=== PATIENT | female | born 1965 | race Hispanic/Latino ===

== ENCOUNTER 2016-10-28 17:29 | Emergency (ER) | payer OTHER ==
[~2016-10-28] VITALS: Ht 157.5 cm; Wt 68.0 kg
[~2016-10-28 17:29] MED LIST: BENADRYL25 MG PO; CIPRO500 M1 PO; ENDOCET 325 MG-1 TA1 PO; EPIPEN ADULT A0.3 MG IM; FLEXERIL 5MG TAB5 MG PO; FLEXERIL10 MG PO; HYDROXYZINE HCL25 M2 PO; LINZESS145 MC1 PO; LINZESS145 MCG PO; MEDROL4 M2 PO; NAPROXEN500 MG PO; PEPCID20 MG PO; PEPCID40 MG PO; PERCOCET 325 MG1 TA2 PO; PERCOCET 5-3251 EACH PO; TRAMADOL HCL50 M1 PO; VISTARIL50 MG PO; XOLAIR IM; XOLAIR150 MG IM; ZOFRAN ODT4 M1 PO
[2016-10-28 17:53] VITALS: BP 161/93
[2016-10-28 18:13] LABS: ABSOLUTE BASOPHIL COUNT 0 /CUMM (0.0-0.2); ABSOLUTE EOSINOPHIL COUNT 0.1 /CUMM (0.0-0.7); ABSOLUTE GRANULOCYTE CT 3.4 /CUMM (1.4-6.5); ABSOLUTE LYMPH COUNT 1.8 /CUMM (1.2-3.4); ABSOLUTE MONOCYTE COUNT 0.6 /CUMM (0.10-0.60); BASOPHIL % 0.5 % (0.0-2.0); EOSINOPHIL % 1.8 % (0-5); GRANULOCYTE % 56.9 % (42.2-75.2); MEAN CORPUSCULAR HGB 29.2 PG (27.0-31.0); MEAN CORPUSCULAR HGB CONC 33.4 G/DL (33.0-37.0); MEAN CORPUSCULAR VOLUME 87.3 FL (81.0-99.0); MEAN PLATELET VOLUME 9.4 FL (7.4-10.4); PLATELET COUNT 283 /CUMM (130-400); RBC DISTRIBUTION WIDTH 13.5 % (11.5-14.5); RED BLOOD CELL CT 4.92 /CUMM (4.20-5.40); WHITE BLOOD CELL COUNT 5.9 /CUMM (4.8-10.8)
--- NOTE | 2016-10-28 19:04 | ED GI/GU/ABDOMINAL COMPLAINT ---
History of Present Illness General Chief Complaint: Abdominal Pain/Flank Pain Stated Complaint: LT SIDE PAIN Source: patient, old records Exam Limitations: no limitations Vital Signs & Intake/Output Vital Signs & Intake/Output Vital Signs Date Time Temp Pulse Resp B/P B/P Pulse O2 O2 Flow FiO2 Mean Ox Delivery Rate 10/28 1753 97.1 69 16 161/93 100 ED Intake and Output 10/29 0000 10/28 1200 Intake Total 120 Output Total Balance 120 Intake, Oral 120 Patient 150 lb Weight Weight Reported by Patient Measurement Method Allergies Coded Allergies: ibuprofen (Mild, HIVES 08/02/15) morphine (HIVES 08/02/15) Reconcile Medications Diphenhydramine HCl (Benadryl) 25 MG CAPSULE 1 CAP PO PRN ALLERGIES (Reported ) Epinephrine (Epipen 2-Walter) 0.3 MG/0.3 ML AUTO.INJCT 0.3 MG IM PRN ANAPHYLAXIS (Reported) Linaclotide (Linzess) 145 MCG CAPSULE 1 CAP PO DAILY GI (Reported) Omalizumab (Xolair) (Unknown Strength) VIAL (Unknown Dose) IM Q30D ALLERGIES (Reported) Ondansetron (Zofran Odt) 4 MG TAB.RAPDIS 1 TAB SL TID PRN nausea Oxycodone HCl/Acetaminophen (Percocet 5-325 MG Tablet) 5 MG-325 MG TABLET 1 TAB PO BID PRN pain Tramadol HCl 50 MG TABLET 1 TAB PO BIDP PRN pain Triage Note: PT STATES SHE IS HAVING LEFT SIDED BACK PAIN THAT RADIATES INTO HER GROIN. Triage Nurses Notes Reviewed? yes LMP (ages 10-50): last week ? n Is pt currently ? No Onset: Abrupt Duration: week(s): (1), intermittent Timing: recent history Quality/Severity: moderate, sharpness Severity Numbers: 7 Location: left flank Radiation: LLQ Activities at Onset: none Prior Abdominal Problems: similar symptoms (kidney stone) No Modifying Factors: none Associated Symptoms: denies HPI: 51-year-old female with history of kidney stones appendectomy presents to ER for evaluation complaining of left flank pain radiating to the left groin for the past 1 week waxing and waning intermittent in nature unrelieved with Aleve. She denies nausea vomiting fever chills no urinary symptoms. Her last menstrual cycle was last week. Symptoms are not worse with change in position however worse with palpation. No modifying factors or associated symptoms otherwise. She does not talk care for the symptoms until today. It is not worse with deep inspiration no chest pain no shortness of breath (PHUONG TRIANA) Past History Travel History Traveled to [place] past 21 day No Medical History Any Pertinent Medical History? see below for history Neurological: NONE EENT: NONE Cardiovascular: NONE Respiratory: NONE Gastrointestinal: NONE Hepatic: NONE Renal: KIDNEY STONES Musculoskeletal: CHRONIC BACKPAIN LUMBAR SPINE STENOSIS Psychiatric: NONE Endocrine: NONE Blood Disorders: NONE Cancer(s): NONE EXTENSION SERVICE AGENT/Reproductive: NONE Surgical History Surgical History: KIDNEY STONE REMOVAL. aPPENDECTOMY Psychosocial History What is your primary language Turkmen Tobacco Use: Never used ETOH Use: denies use Illicit Drug Use: denies illicit drug use Family History Hx Contributory? No (PHUONG TRIANA) Review of Systems Review of Systems Constitutional: Reports: see HPI. All Other Systems: Reviewed and Negative Comments Review of systems: See HPI, All other systems negative. Constitutional, no chills no fever, no malaise no weight loss HEENT: No visual changes no sore throat no congestion, no ear pain Cardiovascular: No chest pain , no palpitation , no orthopnea Skin: no rashes, no change in skin Respiratory: No dyspnea no cough no sputum no hemoptysis GI: No nausea no vomiting, no diarrhea, no bloating/constipation : No dysuria No hematuria, no frequency, no discharge Muscle skeletal: No joint pain, no joint swelling, no back pain, no neck pain, Neurologic: No numbness no confusion, no headache Psych: No stress no depression,. Heme/endocrine: No bruising no bleeding Immunology: No lymphadenopathy (PHUONG TRIANA) Physical Exam Physical Exam General Appearance: well developed/nourished, no apparent distress, alert Gastrointestinal: soft Comments: Well-developed well-nourished person in no acute distress HEENT: Normal EENT exam; PERRL, EOMI, HEAD is atraumatic. moist mucous membranes. Neck: Supple, normal range of motion Back: Nontender, no CVA tenderness. Full range of motion Cardiovascular: Regular rate and rhythms no murmurs rubs Respiratory: No respiratory distress. Patient speaking in full complete sentences. Breath sounds clear to auscultation bilaterally: NO W/R/R Abdomen: Soft, nontender nondistended, Extremity: No edema, full range of motion of extremities Neuro: Alert oriented x3, motor sensory normal, There were no obvious focal neurologic abnormalities. Skin: No appreciable rash on exposed skin, skin is warm and dry. Psych: Mood and affect is normal, memory and judgment is normal. Core Measures ACS in differential dx? No Severe Sepsis Present: No Septic Shock Present: No (NAZ CASTILLO,PHUONG) Progress Differential Diagnosis: appendicitis, biliary colic, bowel obstruction, colon cancer, cholecystitis, diverticulitis, ectopic , gastritis, hepatitis, ischemic bowel, inflamm bowel dis, intrauterine , kidney stone, pancreatitis, PID/cervicitis, peptic ulcer, PUD/GERD, perforated viscous, SBO Plan of Care: Orders Procedure Date/time Status URINALYSIS 10/28 1754 Complete LIPASE 10/28 1740 Complete HUMAN BETA HCG SCREEN 10/28 1740 Complete COMPREHENSIVE METABOLIC PANEL 10/28 1740 Complete CBC WITHOUT DIFFERENTIAL 10/28 1740 Complete AMYLASE 10/28 1740 Complete Laboratory Tests 10/28/16 1804: Urine Color YEL, Urine Clarity CLEAR, Urine pH 6.0, Ur Specific Franklin 1.020, Urine Protein NEG, Urine Ketones NEG, Urine Nitrite NEG, Urine Bilirubin NEG, Urine Urobilinogen 0.2, Ur Leukocyte Esterase NEG, Ur Microscopic SEDIMENT EXAMINED, Urine RBC RARE, Urine WBC RARE, Ur Epithelial Cells FEW, Urine Bacteria RARE H, Urine Mucus RARE, Urine Hemoglobin SMALL H, Urine Glucose NEG 10/28/161754: Anion Gap 11, Estimated GFR > 60, BUN/Creatinine Ratio 20.0, Glucose 84, Calcium 9.5, Total Bilirubin 0.5, AST 20, ALT 38, Alkaline Phosphatase 101, Total Protein 7.5, Albumin 4.5, Globulin 3.0, Albumin/Globulin Ratio 1.5, Amylase 72, Lipase 89, Total Beta HCG NEGATIVE, CBC w Diff NO MAN DIFF REQ, RBC 4.92, MCV 87.3, MCH 29.2, RDW 13.5, MPV 9.4, Gran % 56.9, Lymphocytes % 30.6, Monocytes % 10.2 H, Eosinophils % 1.8, Basophils % 0.5, Absolute Granulocytes 3.4, Absolute Lymphocytes 1.8, Absolute Monocytes 0.6, Absolute Eosinophils 0.1, Absolute Basophils 0, PUBS MCHC 33.4 Labs ordered old records reviewed. Patient medicated Percocet and Zofran by mouth ultrasound ordered Repeat evaluation patient reports pain has improved with medication I discussed with the patient at length all of their results and incidental findings. I had an extensive conversation regarding need for close follow up with their urologist and primary care physician this week as well as return precautions. I answered all of their questions, they feel comfortable with the plan and follow-up care. I discussed with the patient/family the medications that they will receive. I gave them signs and symptoms that could indicate an adverse reaction. I have advised them to limit their activities until they can see how they respond to the medication. (NAZ CASTILLO,PHUONG) Diagnostic Imaging: Viewed by Me: Ultrasound. Discussed w/RAD: Ultrasound. Radiology Impression: PATIENT: NO ALAMO PRESENT AGE: 51 PATIENT ACCOUNT NO: [id number] : 67 LOCATION: [facility] ORDERING PHYSICIAN: PHUONG CASTILLO SERVICE DATE: 10/28/16 EXAM TYPE: US - US- RENAL/KIDNEY EXAMINATION: US RETROPERITONEAL COMPLETE (RENAL) CLINICAL INFORMATION: Left flank pain. Hematuria.. COMPARISON: CT abdomen pelvis 2015 and KUB/renal ultrasound 03/17/2016 TECHNIQUE: Real-time imaging of the kidneys and bladder. Examination mildly limited secondary to overlying bowel gas. FINDINGS: RIGHT KIDNEY: 10.5 x 4.0 x 4.8 cm (SAG x AP x TRV). The kidney is normal in size, contour, and echogenicity. Renal cortical thickness is normal. No calculi or focal parenchymal lesions. No hydronephrosis. LEFT KIDNEY: 8.6 x 5.2 x 5.1 cm (SAG x AP x TRV). The kidney is normal in size, contour, and echogenicity. Renal cortical thickness is normal. Ill-defined 9 mm echogenic focus within the upper pole of the left kidney, nonspecific. No left-sided hydronephrosis. BLADDER: The bladder is decompressed and therefore cannot be accurately evaluated. Bilateral ureteral jets not demonstrated. IMPRESSION: Ill- defined, 9 mm echogenic focus within the upper pole of the left kidney. This potentially represents a nonobstructing renal calculus or small angiomyolipoma. A vascular reflection is also within the differential. There is no associated hydronephrosis. Clinical correlation recommended. This may be further evaluated with cross-sectional imaging, however, no abnormalities of the left kidney were identified on recent CT abdomen pelvis of 05/28/2016. DICTATED BY: MADHAVI BARTHOLOMEW MD DATE/TIME DICTATED:10/28/162118 PHYSICAL MEDICINE PHYSICIAN:NAVEEN DATE/TIME TRANSCRIBED:10/28/162118 CONFIDENTIAL, DO NOT COPY WITHOUT APPROPRIATE AUTHORIZATION. <Electronically signed in Other Vendor System> SIGNED BY: MADHAVI BARTHOLOMEW MD 10/28/162126 Initial ED EKG: none (PHUONG TRIANA) Departure Departure Time of Disposition: 2139 Disposition: HOME OR SELF CARE Condition: Stable Clinical Impression Primary Impression: Flank pain Referrals: JOSE MCELROY (PCP/Family) Additional Instructions: percocet for breakthrough pain, zofran for nausea. bland diet, follow up with dr moyer. return to the ER with any concerns. these were sent to [facility] Departure Forms: Customer Survey General Discharge Information Prescriptions: Current Visit Scripts Oxycodone HCl/Acetaminophen (Percocet 5-325 MG Tablet) 1 TAB PO BID PRN pain #10 TAB Ondansetron (Zofran Odt) 1 TAB SL TID PRN nausea #10 TAB (PHUONG TRIANA) PA/QUALITY TECH Co-Sign Statement Statement: ED Attending supervision documentation- [] I saw and evaluated the patient. I have also reviewed all the pertinent lab results and diagnostic results. I agree with the findings and the plan of care as documented in the PA's/QUALITY TECH's documentation. [X] I have reviewed the ED Record and agree with the PA's/QUALITY TECH's documentation. [] Additions or exceptions (if any) to the PAs/QUALITY TECH's note and plan are summarized below: [] (VASHTI FRANKLIN,ANURADHA)
--- NOTE | 2016-10-28 21:27 | ULTRASOUND REPORT ---
EXAMINATION: US RETROPERITONEAL COMPLETE (RENAL) CLINICAL INFORMATION: Left flank pain. Hematuria.. COMPARISON: CT abdomen pelvis 05/28/2016 and KUB/renal ultrasound 03/17/2016 TECHNIQUE: Real-time imaging of the kidneys and bladder. Examination mildly limited secondary to overlying bowel gas. FINDINGS: RIGHT KIDNEY: 10.5 x 4.0 x 4.8 cm (SAG x AP x TRV). The kidney is normal in size, contour, and echogenicity. Renal cortical thickness is normal. No calculi or focal parenchymal lesions. No hydronephrosis. LEFT KIDNEY: 8.6 x 5.2 x 5.1 cm (SAG x AP x TRV). The kidney is normal in size, contour, and echogenicity. Renal cortical thickness is normal. Ill-defined 9 mm echogenic focus within the upper pole of the left kidney, nonspecific. No left-sided hydronephrosis. BLADDER: The bladder is decompressed and therefore cannot be accurately evaluated. Bilateral ureteral jets not demonstrated. IMPRESSION: Ill-defined, 9 mm echogenic focus within the upper pole of the left kidney. This potentially represents a nonobstructing renal calculus or small angiomyolipoma. A vascular reflection is also within the differential. There is no associated hydronephrosis. Clinical correlation recommended. This may be further evaluated with cross-sectional imaging, however, no abnormalities of the left kidney were identified on recent CT abdomen pelvis of 05/28/2016.
[2016-10-28] MEDS ORDERED: ZOFRAN ODT4 M1 SL (21:42)
[2016-10-28] MEDS ORDERED: PERCOCET 5-3251 EACH PO (21:42)
== END 2016-10-28 21:48 ==
LOC: ERH 17:29
PROVIDERS: Physician Assistant Medical
DX: R10.9 Unspecified abdominal pain (principal)
CPT/HCPCS: 76775; 81001; J3101